=== PATIENT | male | born 1955 | race Caucasian/White ===

== ENCOUNTER → 2020-12-25 07:07 | Outpatient (CLI) | payer OTHER, SELFPAY ==
[2020-12-25 20:36] LABS: SARS-CoV-2 RNA PCR Positive
== END ==
PROVIDERS: PCP Family Medicine; Visit Provider Physician Assistant
DX: U07.1 COVID-19 (principal)
CPT/HCPCS: C9803; U0003; U0005

== ENCOUNTER → 2021-05-08 18:03 | Outpatient (CLI) | payer OTHER, SELFPAY ==
--- NOTE | ~2021-05-08 | XR_ITS ---
XR lumbar spine 2-3V 05/08/2021 19:01 Indication: Low back pain. Lumbar disc displacement. Procedure: 3 views lumbar spine Comparison: No prior studies for comparison. Findings: There is disc narrowing at all lumbar levels most advanced at L5-S1. There is grade 1 degen erative spondylolisthesis at L3-4. There is mild multilevel facet no acute fracture or traumatic efrain lignment. Sacral foramen are symmetric. Mildly prominent left lateral osteophytes at L2-3 and L3-4. Impression: 1: Moderate lumbar spondylosis with grade 1 degenerative spondylolisthesis at L3-4. Reviewed, dictated and finalized at location A. Impression: 1: Moderate lumbar spondylosis with grade 1 degenerative spondylolisthesis at L 3-4.
== END ==
DX: M47.816 Spondylosis without myelopathy or radiculopathy, lumbar region (principal)
CPT/HCPCS: 72100

== ENCOUNTER 2022-08-13 08:50 | Outpatient (CLI) | payer OTHER, SELFPAY ==
--- NOTE | ~2022-08-13 | NM_ITS ---
EXAMINATION: NM stress w perf spect multi DATE: 08/13/2022 11:05 INDICATION: Chest pain TECHNIQUE: Rest images were obtained following intravenous administration of 9.8 mCi Tc99m tetrofosmi n ([employer]). The patient performed an exercise activity. At peak exercise, 30.5 mCi Tc99m tetrofosmin ([employer]) was administered intravenously, and stress images were obtained. Data was reconstructed in to short axis and horizontal and vertical long axis SPECT images. Gated SPECT images were also obtain ed. COMPARISON: None. FINDINGS: Moderate-sized severe fixed perfusion defect involving the apical, apical septal and apical anterior segments consistent with infarct. No reversible ischemia. There is normal left ventricular chamber s ize, wall motion and ejection fraction. Left ventricular ejection fraction measures >70%. IMPRESSION: 1. Moderate-sized severe infarct involving the apical, apical septal and apical anterior segments. No reversible ischemia. 2. Left ventricular ejection fraction measuring >70%. Reviewed, dictated and finalized at location B.
--- NOTE | 2022-08-13 09:02 | EST_ITS ---
Patient Info Name: Sravani Pandey Age: 66 years : 1955 Gender: Male Ht: 66 in Wt: 200 lbs BSA: 2.09 m2 Exam Date: 08/13/2022 10:14 AM Exam Location: [facility] Stress Patient Status: Outpatient Admit Date: 08/13/2022 Staff Ordering Physician: Luis Little DO Attending Provider: Luis Little DO Exercise Technologist: Joseph Henderson RDCS, RT Exercise Physician: Luis Little DO Exam Type: CA stress test treadmill w NM Study Info Indications R07.9 - Chest pain, unspecified A nuclear stress test was performed. Summary 1. 1. Negative Jose Manuel exercise stress test for ischemic ST changes by ECG criteria. 2. 2. Reduced functional capacity, achieving 7 METs of workload. 3. 3. Appropriate HR response to exercise. 4. 4. Appropriate HR recovery at 1 minute post exercise. 5. 5. Nuclear scan to follow and will be reported separately. Please correlate with it. 6. 6. Patient informed of the above results. Protocol: Jose Manuel Stress ECG Details Stage: REST Duration (min): 1 min : 12 sec Speed (mph): 0.0 Grade (%): 0 HR (bpm): 86 SBP (mmHg): 116 DBP (mmHg): 85 METS: --- Stage: REST Duration (min): 1 min : 36 sec Speed (mph): 0.0 Grade (%): 0 HR (bpm): 76 SBP (mmHg): 116 DBP (mmHg): 85 METS: --- Stage: STAGE 1 Duration (min): 1 min : 0 sec Speed (mph): 1.7 Grade (%): 10 HR (bpm): 111 SBP (mmHg): 116 DBP (mmHg): 85 METS: --- Stage: STAGE 1 Duration (min): 2 min : 0 sec Speed (mph): 1.7 Grade (%): 10 HR (bpm): 120 SBP (mmHg): 116 DBP (mmHg): 85 METS: --- Stage: STAGE 1 Duration (min): 3 min : 0 sec Speed (mph): 1.7 Grade (%): 10 HR (bpm): 123 SBP (mmHg): 151 DBP (mmHg): 83 METS: --- Stage: STAGE 2 Duration (min): 1 min : 0 sec Speed (mph): 2.5 Grade (%): 12 HR (bpm): 135 SBP (mmHg): 151 DBP (mmHg): 83 METS: --- Stage: STAGE 2 Duration (min): 1 min : 59 sec Speed (mph): 2.5 Grade (%): 12 HR (bpm): 139 SBP (mmHg): 175 DBP (mmHg): 103 METS: --- Stage: RECOVERY Duration (min): 1 min : 0 sec Speed (mph): 0.0 Grade (%): 0 HR (bpm): 128 SBP (mmHg): 175 DBP (mmHg): 103 METS: --- Stage: RECOVERY Duration (min): 2 min : 0 sec Speed (mph): 0.0 Grade (%): 0 HR (bpm): 97 SBP (mmHg): 175 DBP (mmHg): 103 METS: --- Stage: RECOVERY Duration (min): 3 min : 0 sec Speed (mph): 0.0 Grade (%): 0 HR (bpm): 101 SBP (mmHg): 157 DBP (mmHg): 88 METS: --- Stage: RECOVERY Duration (min): 3 min : 11 sec Speed (mph): 0.0 Grade (%): 0 HR (bpm): 108 SBP (mmHg): 157 DBP (mmHg): 88 METS: --- Rest HR: 76 bpm Peak HR: 140 bpm Rest Sys BP: 116 mmHg Peak Sys BP: 175 mmHg Max Pred HR: 156 bpm % Max Pred HR: 90 % Target HR: 133 bpm Max RPP: 24,500 bpm*mmHg Regan Score: -4 Termination Reason: Reached target
== END 2022-08-13 08:51 | disposition home or self-care (01) ==
LOC: ANHCARD 08:52
PROVIDERS: PCP Nurse Practitioner Family; Visit Provider Internal Medicine Cardiovascular Disease
DX: R07.89 Other chest pain (principal)
CPT/HCPCS: 78452; 93017; A9502

== ENCOUNTER → 2022-11-10 11:19 | Outpatient (CLI) | payer OTHER, SELFPAY ==
--- NOTE | ~2022-11-10 | XR_ITS ---
EXAM: XR knee RT min 4V DATE: 11/10/2022 11:57 HISTORY: M25.561 - Pain in right knee . COMPARISON: None available. FINDINGS: Normal mineralization. No fracture or dislocation. No lytic or blastic lesion. Severe medi al joint space narrowing. Varus alignment. Tricompartmental osteophytosis, moderate in the patellofem oral compartment. Large volume joint fluid. No erosion or periosteal change. Soft tissues within norm al limits. IMPRESSION: Tricompartmental right knee osteoarthritis, severe in the medial compartment. Large right knee joint effusion. Reviewed, dictated and finalized at location K. HAT FLANGER IMPRESSION: Tricompartmental right knee osteoarthritis, severe in the medial co mpartment. Large right knee joint effusion.
--- NOTE | ~2022-11-10 | XR_ITS ---
EXAM: XR lumbar spine 2-3V DATE: 11/10/2022 11:57 HISTORY: M54.50 - Low back pain, unspecified . COMPARISON: 05/08/2021. FINDINGS: 5 nonrib-bearing lumbar-type vertebral bodies. Pedicles intact. 3 mm anterolisthesis at L3 -4. Vertebral body heights preserved. Multilevel disc space narrowing and marginal osteophytosis, mod erate at L2-3 and L4-5, severe at L5-S1 with vacuum phenomenon. Multilevel bridging osteophytes. Shirley re multilevel facet hypertrophy and sclerosis. No fracture or dislocation. IMPRESSION: Grade 1 anterolisthesis at L3-4. Severe degenerative disc disease at L5-S1. Multilevel se leandra facet arthropathy. Reviewed, dictated and finalized at location K. EL POLISHER IMPRESSION: Grade 1 anterolisthesis at L3-4. Severe degenerative disc disease a t L5-S1. Multilevel severe facet arthropathy.
== END ==
PROVIDERS: PCP Nurse Practitioner Family; Visit Provider Nurse Practitioner Family
DX: M25.561 Pain in right knee (principal); M54.50 Low back pain, unspecified; M51.37 Other intervertebral disc degeneration, lumbosacral region; M17.11 Unilateral primary osteoarthritis, right knee; M25.461 Effusion, right knee
CPT/HCPCS: 72100; 73564

== ENCOUNTER 2023-10-23 02:41 | Day surgery (SDC) | payer OTHER, SELFPAY ==
[2023-10-06 16:08] VITALS: BMI 34.1
--- NOTE | 2023-10-21 08:20 | SUR.PREOP ---
Patient called regarding upcoming procedure. Reviewed preop instructions, appointment times, and procedure prep.
--- NOTE | 2023-10-22 08:51 | WPDANESEPPF ---
Anes - Initial Pre Proc Eval Procedure: Operation Date: 10/23/23 07:30 Proposed Procedures p Colonoscopy - Pablo Katz MD Date/Time: 10/22/23 08:51 Surgeon: Pablo Katz MD Pre Op Diagnosis: history of colon polyps Patient Data Age: 68 Gender: M Height: 1.65 m Weight: 93 kg Allergies Allergy/AdvReac Type Severity Reaction Status Date / Time Shrimp Allergy Severe Swelling Uncoded 10/23/23 06:22 Home Medications Medication Instructions Recorded Confirmed Type aspirin 81 mg tablet,delayed 81 mg PO DAILY #30 tabs 11/29/19 10/23/23 Rx release (Adult Low Dose Aspirin) ascorbic acid (vitamin C) 1,000 mg 1 g PO DAILY 05/07/22 10/23/23 History capsule cholecalciferol (vitamin D3) 50 50 mcg PO DAILY 05/07/22 10/23/23 History mcg (2,000 unit) capsule fluticasone propionate 50 1 spray intranasal DAILY 05/07/22 10/23/23 History mcg/actuation nasal spray,suspension [id number]-pnacjodzjfdq-oefxsn 100 cap PO 05/07/22 09/17/23 History mg-500 mg-50 mg capsule loratadine 10 mg tablet 10 mg PO DAILY 05/07/22 10/23/23 History omega 4-mkb-gye-fish oil 1,000 mg 1 cap PO DAILY 05/07/22 10/23/23 History (120 mg-180 mg) capsule (Fish Oil) vitamin B complex (B 1 tablet PO DAILY 05/07/22 10/23/23 History Complex-Vitamin B12 tablet) zinc 50 mg tablet 50 mg PO DAILY 05/07/22 10/23/23 History atorvastatin 10 mg tablet 10 mg PO DAILY #90 tabs 07/13/23 10/23/23 Rx lisinopril 10 1 tablet PO DAILY #90 tabs 07/13/23 10/23/23 Rx mg-hydrochlorothiazide 12.5 mg tablet Patient hx anesthesia problems: none Family hx anesthesia problems: none Results Review: All pre-operative results and documents have been reviewed as part of the pre-operative evaluation. [facility] Past Medical History Medical History (Updated 10/22/23 @ 10:52 by Pablo Katz MD) Allergic rhinitis Bilateral knee pain Bilateral shoulder pain BMI 33.0-33.9,adult BMI 34.0-34.9,adult Cataract, right eye Coronary artery disease Dyslipidemia Elevated fasting glucose Excess sun exposure History of heart attack Hypertension Low back pain radiating to right leg Lumbar spondylosis Nocturia Obese Right knee pain Surgical History Surgical History (Updated 10/22/23 @ 08:52 by Long Murcia DO) History of coronary artery stent placement x2 Family History Family History Mother Asthma Family history of cardiovascular disease Family history of Alzheimer's disease, Onset Age: 91 Father Family history of chronic obstructive pulmonary disease Family history of cardiovascular disease, Onset Age: 88 Sibling Hypertension Patient's sister is in good health Patient's brother is in good health Family history of cardiovascular disease, Onset Age: 48 Social History Social History Social History: Smoking packs per day: 1.5 Smoking cigarettes per day: 30.0 Years smoked: 10 Smoking pack-years: 15.00 Smoking status: Former smoker Tobacco type: cigarettes Second hand tobacco smoke exposure: No Smoking end date: 11/02/78 Alcohol intake: never Substance use: never Substance use type: does not use Lack of Transportation: No Lack of Food: Never True Current Housing: I Have Housing Concerned About Future Housing: No Difficulty Paying Gas/Electric Bills: No Difficulty Paying for Meds: No Currently Unemployed: No Education: High School Diploma/GED Difficulty w/ Childcare or Family Care: No Living arrangements: alone Occupation/Education: retired Gender identity (if verbalized by the patient): Male Spiritual care concerns: No Anes - Eval Final PreProcedure Day of Procedure 10/22/23 08:51 Patient weight: obese Heart: regular rate and rhythm Lungs: clear to auscultation Airway: Mallampati scale class II Ne
--- NOTE | 2023-10-22 10:52 | PM.HPGS ---
History of Present Illness History of Present Illness Consent: Risks, benefits, and alternatives have been discussed and questions answered. Patient agrees to proceed with procedure. Chief complaint: history of colon polyps Narrative: Sravani Pandey is a 68 year old male referred for colon cancer screening. About 5 years ago he had an adenoma. Ten years ago he had a sigmoid colon resection for diverticulitis. Review of Systems Review of Systems: All systems reviewed & are unremarkable except as noted in HPI and below PMFSH Past Medical History Medical History Allergic rhinitis Bilateral knee pain Bilateral shoulder pain BMI 33.0-33.9,adult BMI 34.0-34.9,adult Cataract, right eye Coronary artery disease Dyslipidemia Elevated fasting glucose Excess sun exposure History of heart attack Hypertension Low back pain radiating to right leg Lumbar spondylosis Nocturia Obese Right knee pain Surgical History Surgical History History of coronary artery stent placement x2 Family History Family History Mother Asthma Family history of cardiovascular disease Family history of Alzheimer's disease, Onset Age: 91 Father Family history of chronic obstructive pulmonary disease Family history of cardiovascular disease, Onset Age: 88 Sibling Hypertension Patient's sister is in good health Patient's brother is in good health Family history of cardiovascular disease, Onset Age: 48 Social History Social History Social History: Smoking packs per day: 1.5 Smoking cigarettes per day: 30.0 Years smoked: 10 Smoking pack-years: 15.00 Smoking status: Former smoker Tobacco type: cigarettes Second hand tobacco smoke exposure: No Smoking end date: 11/02/78 Alcohol intake: never Substance use: never Substance use type: does not use Lack of Transportation: No Lack of Food: Never True Current Housing: I Have Housing Concerned About Future Housing: No Difficulty Paying Gas/Electric Bills: No Difficulty Paying for Meds: No Currently Unemployed: No Education: High School Diploma/GED Difficulty w/ Childcare or Family Care: No Living arrangements: alone Occupation/Education: retired Gender identity (if verbalized by the patient): Male Spiritual care concerns: No Meds Home Medications and Allergies Home Medications Medication Instructions Recorded Confirmed Type aspirin 81 mg tablet,delayed 81 mg PO DAILY #30 tabs 11/29/19 10/23/23 Rx release (Adult Low Dose Aspirin) ascorbic acid (vitamin C) 1,000 mg 1 g PO DAILY 05/07/22 10/23/23 History capsule cholecalciferol (vitamin D3) 50 50 mcg PO DAILY 05/07/22 10/23/23 History mcg (2,000 unit) capsule fluticasone propionate 50 1 spray intranasal DAILY 05/07/22 10/23/23 History mcg/actuation nasal spray,suspension [id number]-rjhdzjnbrplw-hbajgx 100 cap PO 05/07/22 09/17/23 History mg-500 mg-50 mg capsule loratadine 10 mg tablet 10 mg PO DAILY 05/07/22 10/23/23 History omega 8-vdm-lnc-fish oil 1,000 mg 1 cap PO DAILY 05/07/22 10/23/23 History (120 mg-180 mg) capsule (Fish Oil) vitamin B complex (B 1 tablet PO DAILY 05/07/22 10/23/23 History Complex-Vitamin B12 tablet) zinc 50 mg tablet 50 mg PO DAILY 05/07/22 10/23/23 History atorvastatin 10 mg tablet 10 mg PO DAILY #90 tabs 07/13/23 10/23/23 Rx lisinopril 10 1 tablet PO DAILY #90 tabs 07/13/23 10/23/23 Rx mg-hydrochlorothiazide 12.5 mg tablet Allergies Allergy/AdvReac Type Severity Reaction Status Date / Time Shrimp Allergy Severe Swelling Uncoded 10/23/23 06:22 Exam Const: General: alert Orientation/consciousness: patient oriented x3 Resp: Auscultation: clear to auscultat
[2023-10-23 06:24] VITALS: BP 124/82; PULSE 70; RESP 18; TEMP 36.3; O2SAT 99; BMI 33.1
[2023-10-23] MEDS: LACTATED RINGERS 1,000 ML 150 ML IV CONT (06:32)
[2023-10-23 07:52] VITALS: BP 98/61; PULSE 65; RESP 18; O2SAT 99
[2023-10-23 08:02] VITALS: BP 120/80; PULSE 67; RESP 18; O2SAT 100
[2023-10-23 08:12] VITALS: BP 126/86; PULSE 70; RESP 16; O2SAT 100
== END 2023-10-23 08:25 | disposition home or self-care (01) ==
PROVIDERS: PCP Nurse Practitioner Family; Visit Provider Internal Medicine Gastroenterology
PROC: 0DJD8ZZ Inspection of Lower Intestinal Tract, Via Natural or Artificial Opening Endoscopic (ICD-10-PCS; CPT 45378; principal; 2023-10-23 07:30)
DX: Z12.11 Encounter for screening for malignant neoplasm of colon (principal); Z86.010 Personal history of colon polyps; Z98.0 Intestinal bypass and anastomosis status; Z90.49 Acquired absence of other specified parts of digestive tract; I25.10 Atherosclerotic heart disease of native coronary artery without angina pectoris; E78.5 Hyperlipidemia, unspecified; I25.2 Old myocardial infarction; I10 Essential (primary) hypertension; Z95.5 Presence of coronary angioplasty implant and graft; Z87.891 Personal history of nicotine dependence; E66.9 Obesity, unspecified; Z68.33 Body mass index [BMI] 33.0-33.9, adult; Z87.19 Personal history of other diseases of the digestive system; Z79.82 Long term (current) use of aspirin
CPT/HCPCS: G0105; J2704; J7120